=== PATIENT | male | born 1935 | race Caucasian/White ===

== ENCOUNTER 2020-12-09 09:15 | Day surgery (SDC) | payer MEDICARE, OTHER ==
[2020-12-07 14:45] VITALS: BMI 27.0
--- NOTE | 2020-12-09 06:34 | P.GSHP ---
History of Present Illness H&P Date: 12/04/20 Chief Complaint: Urinary retention The patient is an 84-year-old white male with a several year history of urinary retention, managed with an indwelling Foy catheter. The catheter becomes occluded frequently, requiring frequent catheter changes. Cystoscopy shows multiple large bladder calculi. He now comes for cystolithotripsy. - Constitutional Constitutional: Denies chills, Denies fever - Gastrointestinal Gastrointestinal: Denies nausea, Denies vomiting - Genitourinary (Male) Genitourinary: Reports dysuria Past Medical History - Past Family History Mother Family Medical History: No Reported History Medications and Allergies Home Medications Medication Instructions Recorded Confirmed Type Ciprofloxacin HCl [Cipro] 250 mg PO Q12HR 12/07/20 12/07/20 History Allergies Allergy/AdvReac Type Severity Reaction Status Date / Time No Known Allergies Allergy Verified 12/07/20 14:39 Surgical - Exam - General well developed, well nourished, no distress - Neck no masses, trachea midline - Respiratory normal respiratory effort, clear to auscultation - Cardiovascular Rhythm: regular Abnormal Heart Sounds: no systolic murmur, no diastolic murmur, no rub, no S3 Gallop, no S4 Gallop, no click, no other - Abdomen Abdomen: soft, non tender, no guarding, no rigid, no rebound - Genitourinary normal penis with no external lesions, testicles non-tender - Psychiatric oriented to time, oriented to person, oriented to place, speech is normal, memory intact Assessment and Plan (1) Calculus in bladder Status: Acute Code(s): N21.0 - CALCULUS IN BLADDER SNOMED Code(s): 35296008 Plan: Cystoscopy with cystolithotripsy. The procedure then reviewed in detail with the patient. He is aware of potential risks, which include anesthesia, bleeding, infection, and bladder perforation.
[2020-12-09] MEDS ORDERED: ONDANSETRON 4 MG/2 ML VIAL ONE (09:26)
[2020-12-09] MEDS ORDERED: LACTATED RINGERS 1,000 ML IV ONE ×2 (09:32→12:40)
[2020-12-09 09:45] VITALS: TEMP 97.6
[2020-12-09] MEDS ORDERED: DEXAMETHASONE SOD PHOSPHATE 4 MG/ML 1 ML VIAL IVP ONE (09:47)
[2020-12-09] MEDS ORDERED: ONDANSETRON 4 MG/2 ML VIAL IVP ONE (09:47)
[2020-12-09] MEDS ORDERED: SUCCINYLCHOLINE CHLORIDE 100 MG/5 ML SYR IV ONE (11:49)
[2020-12-09] MEDS ORDERED: fentaNYL (PF) 50 MCG/ML 2 ML AMP ONE (11:49)
[2020-12-09] MEDS ORDERED: KETOROLAC 15 MG/ML 1 ML VIAL ONE (11:49)
[2020-12-09] MEDS ORDERED: FUROSEMIDE 10 MG/ML 2 ML VIAL ONE (11:49)
[2020-12-09] MEDS ORDERED: GLYCOPYRROLATE 0.2 MG/ML 2 ML VIAL ONE (11:49)
[2020-12-09] MEDS ORDERED: PROPOFOL 10 MG/ML 20 ML VIAL IV ONE (11:49)
[2020-12-09] MEDS ORDERED: NEOSTIGMINE 1 MG/ML 10 ML VIAL ONE (11:49)
[2020-12-09] MEDS ORDERED: HYDROmorphone (PF) 1 MG/ML ONE (11:49)
[2020-12-09] MEDS ORDERED: LIDOCAINE 1% INJ 10MG/ML (20 ML MDV) ONE (11:49)
[2020-12-09] MEDS ORDERED: ROCURONIUM 10 MG/ML (5 ML VIAL) IV ONE (11:49)
[2020-12-09 14:05] VITALS: RESP 16
[2020-12-09 15:20] VITALS: BP 168/89; PULSE 62
--- NOTE | 2020-12-09 21:25 | P.OP ---
Date of Procedure: 12/09/20 Preoperative Diagnosis: Bladder calculi Postoperative Diagnosis: Same Procedure(s) Performed: Cystoscopy with cystolithotripsy, fulguration of bleeders Anesthesia: DARIUS Surgeon: Carlos Alberto See Estimated Blood Loss (ml): 30 IV fluids (ml): 1,900 Pathology: other (Calculus fragments, sent for chemical analysis) Condition: stable Disposition: PACU Indications for Procedure: The patient is an 84-year-old white male with a several year history of urinary retention, managed with an indwelling Foy catheter. The catheter becomes occluded frequently, requiring frequent catheter changes. Cystoscopy shows multiple large bladder calculi. He now comes for cystolithotripsy. Operative Findings: Multiple large bladder calculi, measuring up to 2.5 cm in size. Description of Procedure: The patient was taken to the operating room and placed in the dorsal lithotomy position, with legs supported in Naga stirrups. The external genitalia was prepped and draped sterilely. The 30 lens was used to introduce the 21-[place] Gonzales cystoscopic sheath through the urethra and into the bladder under direct vision. The urethra appeared normal. The prostate was visually occluded due to bilobar prostatic enlargement. The bladder was examined in its entirety. The ureteral orifices appeared normal. Over a dozen calculi were seen, measuring up to 2.5 cm in size. No tumors were seen. No diverticuli were seen. Using the 1000 micron Holmium laser probe, lithotripsy was performed. Lithotripsy was continued until all calculus fragments could be removed using the [employer] evacuator. Once this was completed, the bladder was inspected. Oozing was noted from the posterior vesicle neck. This was controlled with electrocautery using the Bugbee electrode. There was no evidence of bladder perforation. A 20-[place] Foy catheter was placed. The return was pink-tinged. The patient tolerated the procedure well was taken to the recovery room in stable condition.
== END 2020-12-09 16:00 | disposition home or self-care (01) ==
LOC: OR 09:15
PROVIDERS: ATTEND Urology
DX: N21.0 Calculus in bladder (principal); N40.0 Benign prostatic hyperplasia without lower urinary tract symptoms; Z97.2 Presence of dental prosthetic device (complete) (partial)
CPT/HCPCS: 52318; 82365; J1100; J1940; J2710; J2405; J0696; J2001; J3010; J1170; J1885; J0330; J2704

== ENCOUNTER 2022-11-21 11:56 | Inpatient (IN) | payer MEDICARE, OTHER ==
[2022-11-21] MEDS ORDERED: MIDAZOLAM 2 MG/2 ML VIAL IV ONE (13:58)
[2022-11-21] MEDS ORDERED: VERAPAMIL SYRINGE (5 MG/10 ML) INTRAARTER ONE (14:01)
[2022-11-21] MEDS ORDERED: IV FLUID CONTINUATION 750 ML IV ONE (14:02)
[2022-11-21] MEDS: HEPARIN SODIUM 1,000 UN/ML (10ML VL) IV ONE ×3 (14:05→15:10)
[2022-11-21] MEDS: niCARdipine Syringe (1,000 mcg/10 mL) INTRACORON ONE ×2 (14:43→14:49)
[2022-11-21] MEDS ORDERED: PHENYLEPHRINE-0.9% NACL SYG 1,000 MCG/10 ML SYRINGE IV ONE (14:49)
[2022-11-21] MEDS ORDERED: IOPAMIDOL-370 100ML BTL INJ ONE ×2 (14:54→14:55)
[2022-11-21] MEDS ORDERED: NITROGLYCERIN SL TABS 0.4 MG TAB SUBLINGUAL PRN (15:04)
[2022-11-21] MEDS ORDERED: ZOLPIDEM 5 MG TAB PO PRN (15:04)
[2022-11-21] MEDS ORDERED: RX INFO: IV CONTRAST WAS GIVEN 1 EACH MISC MISCELLANE PRN (15:04)
[2022-11-21] MEDS ORDERED: MAG HYDROX/AL HYDROX/SIMETH 30 ML CUP PO PRN (15:04)
[2022-11-21] MEDS ORDERED: ATROPINE SULFATE 0.1 MG/ML 10ML SYRINGE IV PRN (15:04)
[2022-11-21] MEDS ORDERED: TICAGRELOR 90 MG TAB PO ONE (15:08)
[2022-11-21] MEDS ORDERED: TIROFIBAN BOLUS 12.5MG/250 ML BAG IV ONE (15:09)
[2022-11-21] MEDS ORDERED: TIROFIBAN 12.5MG-250ML NS 250 ML IV ONE (15:10)
[2022-11-21] MEDS ORDERED: TIROFIBAN 12.5MG-250ML NS 250 ML IV SCH (15:15)
[2022-11-21] MEDS ORDERED: SODIUM CHLORIDE 0.9% 1,000 ML in EMPTY BAG 1 BAG IV SCH (15:15)
[2022-11-21 15:45] LABS: Glucose,Whole Blood 245 mg/dL (70-110)
[2022-11-21] MEDS: HYDROcodone/APAP 7.5-325MG 1 EACH TAB PO PRN (20:29)
[2022-11-21] MEDS: ATORVASTATIN 80 MG TAB PO SCH (20:31)
[2022-11-21] MEDS: TICAGRELOR 90 MG TAB PO SCH (20:31)
--- NOTE | 2022-11-21 21:24 | P.PCN ---
Date of Procedure: 11/21/22 Operative Findings: PERCUTANEOUS CORONARY INTERVENTION Performing physician Umre Kinsey M.D. Procedure Performed: 1. Successful stenting of the proximal LAD using 3.0 x 38 mm Xience drug-eluting stent with an excellent angiographic results. 2. Successful stending of the mid LAD using 2.75 x 28 mm Xience drug-eluting stent with an excellent angiographic result. 3. Adjunctive use off intravascular ultrasound (IVUS) Indication: Acute coronary syndrome Approach: Right radial artery Complications: None Level of Sedation: Moderate with a sedation length of 62 minutes Procedure Discussion: After diagnostic heart catheterization was performed at [facility] which revealed occluded LAD in the ostium the patient was brought to the cardiac catheterization laboratory here at [facility] to undergo an intervention on the left anterior descending artery. Anticoagulation was initiated using heparin with continuous ACT monitoring throughout the procedure. Subsequently I did engage the left main coronary artery using JL 3.5 guiding catheter. I did wire the LAD and I crossed the total occlusion of the ostial/proximal left anterior descending artery which was extremely calcified using a whisper J-wire. The wire was advanced all the way to the distal left anterior descending artery. I did initially balloon angioplasty using 2.0 x 15 mm balloon and I did multiple PTCA ballooning of the LAD in the proximal portion. After that intravascular ultrasound was performed and showed a diameter of the LAD and around 3 mm with concentric calcifications. Attempting advancing 3.0 x 38 mm stent over the wire to the proximal and ostial LAD was unsuccessful in spite of using guide liner. At that point I decided to do balloon angioplasty again of the proximal to mid and mid LAD. That was performed using 3 mm balloon. After that I was able to advance 3.0 x 38 mm stent where the stent was positioned under fluoroscopy guidance and deployed under its nominal pressure. The following angiogram showed an area distal to the stent was a tubular lesion appeared to be concerning which I decided to cover with the stent again. At that area I deployed 2.75 x 28 mm stent after balloon angioplasty initially was performed. The second stent was deployed with about 2 mm overlap between the second and first the stent. The area of overlap was dilated using the stent balloon. The following angiogram showed better angiographic results was NAVID 2 flow in the left anterior descending artery. I decided to leave that alone and start the patient on IIb IIIa inhibitors using Aggrastat. The procedure was completed was no complication Postprocedure Management: 1. Continue IIb IIIa infusion for the next 12-18 hours 2. Dual antiplatelet therapy using aspirin and Brilinta 3. Aggressive cholesterol control
[2022-11-21] MEDS: ACETAMINOPHEN TAB 325 MG TAB PO PRN (23:32)
[2022-11-22 05:16] LABS: Basophils % (A) 0 %; Eosinophils # (A) 0.1 k/uL (0-0.7); Eosinophils % (A) 2 %; HCT 39.9 % (39.0-53.0); HGB 12.8 gm/dL (13.0-17.5); Hypochromasia Slight; Lymphocytes % (A) 14 %; MCH 30.9 pg (25.0-35.0); MCV 96.4 fL (80.0-100.0); Monocytes # (A) 0.5 k/uL (0-1.0); Monocytes % (A) 6 %; Neutrophils # (A) 5.9 k/uL (1.3-7.7); Neutrophils % (A) 77 %; Platelet Count 147 k/uL (150-450); RBC 4.14 m/uL (4.30-5.90); RDW 13.6 % (11.5-15.5); WBC 7.6 k/uL (3.8-10.6)
[2022-11-22 05:29] LABS: Calcium 8.2 mg/dL (8.4-10.2); Total Bilirubin 1.5 mg/dL (0.2-1.3); Total Protein 5.7 g/dL (6.3-8.2)
[2022-11-22] MEDS: HYDROcodone/APAP 7.5-325MG 1 EACH TAB PO PRN ×2 (07:45→21:36)
[2022-11-22] MEDS ORDERED: FUROSEMIDE 40 MG TAB PO STA (08:35)
[2022-11-22] MEDS: METOPROLOL SUCCINATE (ER) 25 MG TAB.ER.24H PO SCH (08:58)
[2022-11-22] MEDS: ASPIRIN 81 MG PO SCH (08:58)
[2022-11-22] MEDS: TICAGRELOR 90 MG TAB PO SCH ×2 (08:59→21:36)
--- NOTE | 2022-11-22 09:20 | P.PN ---
Subjective Progress Note Date: 11/22/22 The patient is an 86-year-old male who was transferred from [facility] for stenting of the LAD. The patient had undergone diagnostic heart cath with Dr. Kinsey, which revealed occluded LAD in the ostium. The patient underwent successful arthrectomy, however he had a large thrombus burden therefore has been Aggrastat for 12-18 Hours Post Procedure. End-Diastolic Pressures Were Noted to Be Elevated throughout Procedure. The patient was interviewed and examined resting comfortably in the ICU bed. He denies any chest pain or chest pressure overnight. His main complaint is lack of appetite and generalized achiness. GENERAL: Well-appearing, well-nourished and in no acute distress. NECK: Supple without JVD or thyromegaly. LUNGS: Breath sounds clear to auscultation bilaterally. Respiration equal. Mildly tachypneic. No wheezes, rales or rhonchi. HEART: Regular rate and rhythm without murmurs, rubs or gallops. S1 and S2 heard. EXTREMITIES: Normal range of motion, no edema. No clubbing or cyanosis. Peripheral pulses intact and strong. Right radial site under TR band. VITALS: Blood pressure 114/82, SpO2 95% on room air, respiratory rate 22, pulse 77 TELEMETRY: Sinus rhythm with left bundle branch block IMPRESSION: NSTEMI Coronary artery disease with occluded LAD, status post arthrectomy and stenting Ischemic cardiomyopathy History of hypothyroidism PLAN: Continue Aggrestat through 1800 Discontinue IV fluids with elevated LVDP Repeat limited echocardiogram tomorrow Start furosemide 40mg daily Further recommendations based on clinical course I am dictating on behalf of Dr Beny Hughes's history/physical and assessment/plan. Objective - Vital Signs Vital signs: Vital Signs Temp 97.3 F L 11/22/22 04:00 Pulse 69 11/22/22 07:00 Resp 47 H 11/22/22 07:00 BP 106/77 11/22/22 05:00 Pulse Ox 97 11/22/22 07:00 FiO2 Intake & Output 11/21/22 11/22/22 11/22/22 18:59 06:59 18:59 Intake Total 242.594 609.198 100 Output Total 175 435 245 Balance 67.594 174.198 -145 Weight 102.2 kg 97.3 kg Intake: IV 65 550 100 Sodium Chloride 0.9% 1, 550 100 000 ml In Empty Bag 1 bag @ 50 mls/hr IV .Q20H [facility] Rx#:[id number] Intake, IV Titration 177.594 59.198 Amount Sodium Chloride 0.9% 1, 150 50 000 ml In Empty Bag 1 bag @ 50 mls/hr IV .Q20H [facility] Rx#:[id number] Tirofiban 12.5MG-250Ml Ns 27.594 9.198 250 ml @ 0.075 MCG/KG/ MIN 9.198 mls/hr IV .Q24H [facility] Rx#:[id number] Output: Urine 175 435 245 Other: Voiding Method Indwelling Catheter Indwelling Catheter - Labs CBC & Chem 7: 11/22/22 04:54 11/22/22 04:54 Labs: Abnormal Lab Results - Last 24 Hours (Table) 11/21/22 11/22/22 11/22/22 Range/Units 15:43 04:54 04:54 RBC 4.14 L (4.30-5.90) m/uL Hgb 12.8 L (13.0-17.5) gm/dL Plt Count 147 L (150-450) k/uL BUN 31 H (9-20) mg/dL Glucose 108 H (74-99) mg/dL POC Glucose (mg/dL) 245 H (70-110) mg/dL Calcium 8.2 L (8.4-10.2) mg/dL Total Bilirubin 1.5 H (0.2-1.3) mg/dL AST 90 H (17-59) U/L Total Protein 5.7 L (6.3-8.2) g/dL Albumin 3.0 L (3.5-5.0) g/dL
--- NOTE | 2022-11-22 09:43 | P.HPIM ---
History of Present Illness H&P Date: 11/21/22 Fred Chávez, is a 86-year-old male patient was transferred from [facility] after diagnostic cardiac cath revealed occluded LAD in the ostium. Patient has past medical history of bladder stones. Patient underwent percutaneous coronary intervention with Dr. Murcia received 2 stents to the LAD. Patient was started on Brilinta for anticoagulation and transferred to the intensive care unit for close monitoring. Vital signs temp 98.6, heart rate 89, blood pressure 124/80 and pulse ox 97% on 2l. At this time patient denies any chest pain. Does report some shortness of breath. Patient denies nausea vomiting or diarrhea. Patient denies any urinary burning or frequency Review of Systems Please refer to HPI otherwise unremarkable Past Medical History Additional Past Medical History / Comment(s): BLADDER STONES History of Any Multi-Drug Resistant Organisms: None Reported Past Surgical History: No Surgical Hx Reported Additional Past Surgical History / Comment(s): DENIES ANY PRIOR SURGERIES OR PROCEDURES Past Anesthesia/Blood Transfusion Reactions: No Reported Reaction Smoking Status: Never smoker - Past Family History Mother Family Medical History: No Reported History Medications and Allergies Home Medications Medication Instructions Recorded Confirmed Type HYDROcodone/APAP 10-325MG [[place] 1 tab PO TID PRN 11/21/22 11/21/22 History 10-325] Lactulose 10 gm PO DAILY 11/21/22 11/21/22 History Levothyroxine Sodium [Synthroid] 25 mcg PO DAILY 11/21/22 11/21/22 History Nystatin 100,000Unit/gm Cream 1 applic TOPICAL BID PRN 11/21/22 11/21/22 History [Mycostatin Cream] Allergies Allergy/AdvReac Type Severity Reaction Status Date / Time No Known Allergies Allergy Verified 12/07/20 14:39 Physical Exam Vitals: Vital Signs Temp Pulse Resp BP Pulse Ox 11/21/22 13:00 97.0 F L 75 16 110/71 98 Intake and Output 11/21/22 11/21/22 11/21/22 06:59 14:59 22:59 Intake Total 50 15 Balance 50 15 Intake: IV 50 15 Other: Weight 102.2 kg Head normocephalic Neck supple Lungs clear to auscultation bilaterally no wheezing or crackles Heart regular rate and rhythm S1-S2, no rub or gallop Abdomen is soft nontender nondistended positive bowel sounds no hepatosplenomegaly Extremities no edema Neuro alert and orientated to [address] to right radial Results CBC & Chem 7: 11/22/22 04:54 11/22/22 04:54 Labs: Abnormal Lab Results - Last 24 Hours (Table) 11/21/22 Range/Units 15:43 POC Glucose (mg/dL) 245 H (70-110) mg/dL Assessment and Plan Assessment: 1. Coronary artery disease with placement of 2 stents to LAD on 11/21/2022 2. Ischemic cardiomyopathy 3. History of hypothyroidism 4. Chronic constipation 5. History of bladder stones Patient currently overflow in the intensive care unit Home medications resumed Repeat labs ordered Time with Patient: Greater than 30 (Greater than 60% of the total time spent in counseling and coordination of care)
--- NOTE | 2022-11-22 09:46 | P.PN ---
Subjective Progress Note Date: 11/22/22 Fred Chávez, is a 86-year-old male patient was transferred from [facility] after diagnostic cardiac cath revealed occluded LAD in the ostium. Patient has past medical history of bladder stones. Patient underwent percutaneous coronary intervention with Dr. Murcia received 2 stents to the LAD. Patient was started on Brilinta for anticoagulation and transferred to the intensive care unit for close monitoring. Vital signs temp 98.6, heart rate 89, blood pressure 124/80 and pulse ox 97% on 2l. At this time patient denies any chest pain. Does report some shortness of breath. Patient denies nausea vomiting or diarrhea. Patient denies any urinary burning or frequency On 11/22/2022 patient is alert and oriented 3. Patient denies any chest pain but still complaining of some shortness of breath. Current vital signs temp 97.9, heart rate 81, respiratory rate 17, blood pressure 114/82 with pulse ox of 95%. 2-D echo has been ordered per cardiology. Patient denies chest pain. Patient denies nausea vomiting or diarrhea. Patient denies any urinary burning or frequency Objective - Vital Signs Vital signs: Vital Signs Temp 97.9 F 11/22/22 08:00 Pulse 77 11/22/22 09:00 Resp 12 11/22/22 09:00 BP 114/82 11/22/22 09:00 Pulse Ox 95 11/22/22 09:00 FiO2 Intake & Output 11/21/22 11/22/22 11/22/22 18:59 06:59 18:59 Intake Total 242.594 609.198 100 Output Total 175 435 245 Balance 67.594 174.198 -145 Weight 102.2 kg 97.3 kg Intake: IV 65 550 100 Sodium Chloride 0.9% 1, 550 100 000 ml In Empty Bag 1 bag @ 50 mls/hr IV .Q20H [facility] Rx#:[id number] Intake, IV Titration 177.594 59.198 Amount Sodium Chloride 0.9% 1, 150 50 000 ml In Empty Bag 1 bag @ 50 mls/hr IV .Q20H [facility] Rx#:[id number] Tirofiban 12.5MG-250Ml Ns 27.594 9.198 250 ml @ 0.075 MCG/KG/ MIN 9.198 mls/hr IV .Q24H [facility] Rx#:[id number] Output: Urine 175 435 245 Other: Voiding Method Indwelling Catheter Indwelling Catheter - Exam Head normocephalic Neck supple Lungs clear to auscultation bilaterally no wheezing or crackles Heart regular rate and rhythm S1-S2, no rub or gallop Abdomen is soft nontender nondistended positive bowel sounds no hepatosplenomegaly Extremities no edema Neuro alert and orientated to [address] to right radial - Labs CBC & Chem 7: 11/22/22 04:54 11/22/22 04:54 Labs: Abnormal Lab Results - Last 24 Hours (Table) 11/21/22 11/22/22 11/22/22 Range/Units 15:43 04:54 04:54 RBC 4.14 L (4.30-5.90) m/uL Hgb 12.8 L (13.0-17.5) gm/dL Plt Count 147 L (150-450) k/uL BUN 31 H (9-20) mg/dL Glucose 108 H (74-99) mg/dL POC Glucose (mg/dL) 245 H (70-110) mg/dL Calcium 8.2 L (8.4-10.2) mg/dL Total Bilirubin 1.5 H (0.2-1.3) mg/dL AST 90 H (17-59) U/L Total Protein 5.7 L (6.3-8.2) g/dL Albumin 3.0 L (3.5-5.0) g/dL Assessment and Plan Assessment: 1. Coronary artery disease with placement of 2 stents to LAD on 11/21/2022 2. Ischemic cardiomyopathy 3. History of hypothyroidism 4. Chronic constipation 5. History of bladder stones Patient currently overflow in the intensive care unit Home medications resumed Repeat labs ordered
[2022-11-22 10:10] VITALS: BMI 26.1
[2022-11-22] MEDS ORDERED: ONDANSETRON 4 MG/2 ML VIAL IVP PRN (14:46)
[2022-11-22] MEDS: ACETAMINOPHEN TAB 325 MG TAB PO PRN (14:52)
[2022-11-22] MEDS ORDERED: FUROSEMIDE 10 MG/ML 4 ML VIAL IV STA (15:00)
[2022-11-22] MEDS: NITROGLYCERIN OINT 1 INCH/GM PACKET TOPICAL SCH ×2 (15:16→18:26)
--- NOTE | 2022-11-22 15:17 | P.PN ---
Progress Note - Text Progress Note Date: 11/22/22 Patient is a transfer from [facility] Symptomatic urinary tract infection, with generalized weakness leukocytosis, he was started on IV ceftriaxone at [facility] Will resume ceftriaxone 1 g IV every 24 We'll obtain culture results from vacation [facility]
[2022-11-22] MEDS: FUROSEMIDE 40 MG TAB PO SCH (15:43)
[2022-11-22 15:57] LABS: Appearance,Urine Clear (Clear); Bacteria,Urine Rare /hpf; Bilirubin,Urine Negative (Negative); Blood,Urine Negative (Negative); Color,Urine Light Yellow; Glucose,Urine (UA) Negative (Negative); Ketones,Urine Negative (Negative); Leukocyte Esterase,Urine Moderate (Negative); Mucus,Urine Rare /hpf; Nitrite,Urine Negative (Negative); Protein,Urine Negative (Negative); RBC,Urine <1 /hpf (0-5); Specific Gravity,Urine 1.012 (1.001-1.035); Squamous Epithelial Cell,Urine <1 /hpf (0-4); Urobilinogen,Urine <2.0 mg/dL (<2.0); WBC,Urine 4 /hpf (0-5)
[2022-11-22] MEDS: ATORVASTATIN 80 MG TAB PO SCH (21:36)
[2022-11-23] MEDS: NITROGLYCERIN OINT 1 INCH/GM PACKET TOPICAL SCH ×4 (02:16→15:43)
[2022-11-23 04:05] LABS: Basophils % (A) 0 %; Eosinophils # (A) 0.1 k/uL (0-0.7); Eosinophils % (A) 2 %; HGB 12.7 gm/dL (13.0-17.5); Lymphocytes % (A) 15 %; MCH 29.3 pg (25.0-35.0); MCHC 31.8 g/dL (31.0-37.0); Mean Platelet Volume 8.1; Monocytes # (A) 0.4 k/uL (0-1.0); Monocytes % (A) 6 %; Neutrophils # (A) 5.5 k/uL (1.3-7.7); Neutrophils % (A) 76 %; Platelet Count 147 k/uL (150-450); RBC 4.34 m/uL (4.30-5.90); RDW 13.6 % (11.5-15.5); WBC 7.2 k/uL (3.8-10.6)
[2022-11-23 04:25] LABS: Albumin 2.9 g/dL (3.5-5.0); Calcium 7.8 mg/dL (8.4-10.2); Potassium 3.5 mmol/L (3.5-5.1); Total Protein 5.6 g/dL (6.3-8.2)
[2022-11-23] MEDS: LEVOTHYROXINE 25 MCG TAB PO SCH (06:51)
[2022-11-23] MEDS: HYDROcodone/APAP 7.5-325MG 1 EACH TAB PO PRN ×2 (07:00→20:13)
--- NOTE | 2022-11-23 08:59 | P.PN ---
Subjective Progress Note Date: 11/23/22 The patient is an 86-year-old male who was transferred from [facility] for stenting of the LAD. The patient had undergone diagnostic heart cath with Dr. Kinsey, which revealed occluded LAD in the ostium. The patient underwent successful arthrectomy, however he had a large thrombus burden therefore has been Aggrastat was given post operatively. End-diastolic pressures were noted to be elevated during procedure. The patient was transferred to [facility] on November 22, however later in the day he de veloped shortness of breath. Additional dose of IV Lasix was given and the patient was transferred back to the ICU for monitoring. According to nursing documentation he is down 3 kg in the last 24 hours. The patient was interviewed and examined resting comfortably in the ICU bed. He denies any chest pain or chest pressure overnight. His main complaint is lack of appetite and generalized achiness. He denies any shortness of breath currently. GENERAL: Well-appearing, well-nourished and in no acute distress. NECK: Supple without JVD or thyromegaly. LUNGS: Breath sounds clear to auscultation bilaterally. Respiration equal. No wheezes, rales or rhonchi. HEART: Regular rate and rhythm without murmurs, rubs or gallops. S1 and S2 heard. EXTREMITIES: Normal range of motion, no edema. No clubbing or cyanosis. Peripheral pulses intact and strong. Right radial site mildly bruised. No gallo any. VITALS: Blood pressure 90/61, heart rate 75, respiratory rate 20, SpO2 94% on room air, temperature 90.8F TELEMETRY: Sinus rhythm with left bundle branch block IMPRESSION: NSTEMI Coronary artery disease with occluded LAD, status post arthrectomy and stenting Ischemic cardiomyopathy History of hypothyroidism PLAN: Continue oral Lasix Awaiting echocardiogram results Resume SAVANNAH/ARB once blood pressure will tolerate Patient may be transferred back to [address] [place] [address] I am dictating on behalf of Dr Beny Hughes's history/physical and assessment/plan. Objective - Vital Signs Vital signs: Vital Signs Temp 98.0 F 11/23/22 08:00 Pulse 75 11/23/22 08:00 Resp 20 11/23/22 08:00 BP 90/61 11/23/22 08:00 Pulse Ox 94 L 11/23/22 08:00 FiO2 Intake & Output 11/22/22 11/23/22 11/23/22 18:59 06:59 18:59 Intake Total 150 Output Total 635 800 250 Balance -485 -800 -250 Weight 97.3 kg 94.7 kg Intake: IV 100 Sodium Chloride 0.9% 1, 100 000 ml In Empty Bag 1 bag @ 50 mls/hr IV .Q20H [facility] Rx#:[id number] Oral 50 Output: Urine 635 800 250 Other: Voiding Method Indwelling Catheter Indwelling Catheter - Labs CBC & Chem 7: 11/23/22 03:45 11/23/22 03:45 Labs: Abnormal Lab Results - Last 24 Hours (Table) 11/22/22 11/23/22 11/23/22 Range/Units 14:57 03:45 03:45 Hgb 12.7 L (13.0-17.5) gm/dL Plt Count 147 L (150-450) k/uL Sodium 136 L (137-145) mmol/L BUN 29 H (9-20) mg/dL Creatinine 1.30 H (0.66-1.25) mg/dL Glucose 107 H (74-99) mg/dL Calcium 7.8 L (8.4-10.2) mg/dL AST 78 H (17-59) U/L Total Protein 5.6 L (6.3-8.2) g/dL Albumin 2.9 L (3.5-5.0) g/dL Ur Leukocyte Esterase Moderate H (Negative) Urine Bacteria Rare H (None) /hpf Urine Mucus Rare H (None) /hpf
[2022-11-23] MEDS: TICAGRELOR 90 MG TAB PO SCH ×2 (10:47→20:11)
[2022-11-23] MEDS: ASPIRIN 81 MG PO SCH (10:47)
[2022-11-23] MEDS: FUROSEMIDE 40 MG TAB PO SCH (10:47)
[2022-11-23] MEDS: LACTULOSE 20 GM/30 ML CUP PO SCH (10:47)
--- NOTE | 2022-11-23 12:45 | CA ---
Transthoracic Echo Report Name: Fred Chávez Age: 86 Gender: M : 1935 Exam Date: 11/23/2022 07:58 Exam Location: [place] [facility] Ht (in): 76 Wt (lb): 214 Ordering Physician: Zahraa Smith Attending/Referring Phys: [id number], Luis Intake Man Magdalene Caldera, RD Procedure CPT: Indications: cardiomyopathy Cardiac Hx: Technical Quality: Fair Contrast 1: Total Dose (mL): Contrast 2: Total Dose (mL): MEASUREMENTS (Male / Female) Normal Values 2D ECHO LV Diastolic Diameter PLAX 4.6 cm 4.2 - 5.9 / 3.9 - 5.3 cm LV Systolic Diameter PLAX 3.5 cm IVS Diastolic Thickness 1.4 cm 0.6 - 1.0 / 0.6 - 0.9 cm LVPW Diastolic Thickness 1.2 cm 0.6 - 1.0 / 0.6 - 0.9 cm LV Relative Wall Thickness 0.6 RV Internal Dim ED PLAX 2.6 cm LVOT Diameter 2.4 cm LA Systolic Diameter LX 3.3 cm 3.0 - 4.0 / 2.7 - 3.8 cm LV Diastolic Volume MOD 4C 132.2 cm??? LV Systolic Volume MOD 4C 102.4 cm??? LV Ejection Fraction MOD 4C 22.5 % LV Diastolic Length 4C 8.2 cm LV Systolic Length 4C 7.8 cm LV Diastolic Volume MOD 2C 77.1 cm??? LV Systolic Volume MOD 2C 49.4 cm??? LV Ejection Fraction MOD 2C 35.9 % LV Diastolic Length 2C 7.9 cm LV Systolic Length 2C 7.7 cm M-MODE Aortic Root Diameter MM 4.1 cm MV E Point Septal Separation 2.1 cm AV Cusp Separation MM 1.8 cm DOPPLER AV Peak Velocity 64.5 cm/s AV Peak Gradient 1.7 mmHg MV Area PHT 2.8 cm??? Mitral E Point Velocity 56.8 cm/s Mitral A Point Velocity 79.2 cm/s Mitral E to A Ratio 0.7 MV Deceleration Time 274.7 ms MV E' Velocity 5.3 cm/s Mitral E to MV E' Ratio 10.7 TR Peak Velocity 254.4 cm/s TR Peak Gradient 25.9 mmHg Right Ventricular Systolic Press 30.6 mmHg FINDINGS Left Ventricle Left ventricular ejection fraction is estimated at 15-20 %. Left ventricular cavity size normal. Mildly increased septal wall thickness. Apical septum akinesis, apical anterior akinesis, apicallateral akinesis, apicalinferior akinesis Right Ventricle Normal right ventricular size. Right ventricular systolic pressure within normal limits. Systolic function mildly impare Right Atrium Normal right atrial size. Left Atrium Left atrium not well visualized. Mitral Valve Mitral valve thickened. Mild mitral annular calcification. Mild mitral regurgitation. Aortic Valve Trileaflet aortic valve. Aortic valve sclerosis. Trace aortic regurgitation. Tricuspid Valve Structurally normal tricuspid valve. Mild tricuspid regurgitation. Pulmonic Valve Structurally normal pulmonic valve. Mild pulmonic regurgitation. Pericardium Normal pericardium. No pericardial effusion. Aorta Moderate aortic dilatation at the level of the sinuses of valsalva 41 mm CONCLUSIONS Left ventricular ejection fraction 15-20% with predominantly apical hypokinesis. 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 Armando Spencer DO (Electronically Signed) Final Date: 23 Nov 2022 12:44
[2022-11-23] MEDS: ACETAMINOPHEN TAB 325 MG TAB PO PRN (14:36)
[2022-11-23] MEDS: METOPROLOL SUCCINATE (ER) 25 MG TAB.ER.24H PO SCH (15:00)
--- NOTE | 2022-11-23 16:36 | P.PN ---
Subjective Progress Note Date: 11/23/22 Fred Chávez, is a 86-year-old male patient was transferred from [facility] after diagnostic cardiac cath revealed occluded LAD in the ostium. Patient has past medical history of bladder stones. Patient underwent percutaneous coronary intervention with Dr. Murcia received 2 stents to the LAD. Patient was started on Brilinta for anticoagulation and transferred to the intensive care unit for close monitoring. Vital signs temp 98.6, heart rate 89, blood pressure 124/80 and pulse ox 97% on 2l. At this time patient denies any chest pain. Does report some shortness of breath. Patient denies nausea vomiting or diarrhea. Patient denies any urinary burning or frequency On 11/22/2022 patient is alert and oriented 3. Patient denies any chest pain but still complaining of some shortness of breath. Current vital signs temp 97.9, heart rate 81, respiratory rate 17, blood pressure 114/82 with pulse ox of 95%. 2-D echo has been ordered per cardiology. Patient denies chest pain. Patient denies nausea vomiting or diarrhea. Patient denies any urinary burning or frequency. On 11/23/2022 patient was seen and examined on the telemetry floor he is alert and oriented 3. Patient denies any chest pain but still complaining of some shortness of breath. Current vital signs temp 97.9, heart rate 81, respiratory rate 17, blood pressure 114/82 with pulse ox of 95%. 2-D echo has been ordered per cardiology. Patient denies chest pain. Patient denies nausea vomiting or diarrhea. Patient denies any urinary symptoms, he has a chronic indwelling Foy catheter. Patient had significant weakness and gait disturbance, physical therapy and occupational therapy consult. Objective - Vital Signs Vital signs: Vital Signs Temp 98.0 F 11/23/22 08:00 Pulse 75 11/23/22 08:00 Resp 20 11/23/22 08:00 BP 90/61 11/23/22 08:00 Pulse Ox 94 L 11/23/22 08:00 FiO2 Intake & Output 11/22/22 11/23/22 11/23/22 18:59 06:59 18:59 Intake Total 150 Output Total 635 800 250 Balance -485 -800 -250 Weight 97.3 kg 94.7 kg Intake: IV 100 Sodium Chloride 0.9% 1, 100 000 ml In Empty Bag 1 bag @ 50 mls/hr IV .Q20H [facility] Rx#:[id number] Oral 50 Output: Urine 635 800 250 Other: Voiding Method Indwelling Catheter Indwelling Catheter - Exam Head normocephalic Neck supple Lungs clear to auscultation bilaterally no wheezing or crackles Heart regular rate and rhythm S1-S2, no rub or gallop Abdomen is soft nontender nondistended positive bowel sounds no hepatosplenomegaly Extremities no edema Neuro alert and orientated to [address] to right radial - Labs CBC & Chem 7: 11/23/22 03:45 11/23/22 03:45 Labs: Abnormal Lab Results - Last 24 Hours (Table) 11/22/22 11/23/22 11/23/22 Range/Units 14:57 03:45 03:45 Hgb 12.7 L (13.0-17.5) gm/dL Plt Count 147 L (150-450) k/uL Sodium 136 L (137-145) mmol/L BUN 29 H (9-20) mg/dL Creatinine 1.30 H (0.66-1.25) mg/dL Glucose 107 H (74-99) mg/dL Calcium 7.8 L (8.4-10.2) mg/dL AST 78 H (17-59) U/L Total Protein 5.6 L (6.3-8.2) g/dL Albumin 2.9 L (3.5-5.0) g/dL Ur Leukocyte Esterase Moderate H (Negative) Urine Bacteria Rare H (None) /hpf Urine Mucus Rare H (None) /hpf Assessment and Plan Assessment: 1. Coronary artery disease with placement of 2 stents to LAD on 11/21/2022 2. Ischemic cardiomyopathy 3. History of hypothyroidism 4. Chronic constipation 5. History of bladder stones Patient currently overflow in the intensive care unit Home medications resumed Repeat labs ordered
[2022-11-23] MEDS: ATORVASTATIN 80 MG TAB PO SCH (20:11)
[2022-11-24 00:52] VITALS: RESP 16
[2022-11-24] MEDS: LEVOTHYROXINE 25 MCG TAB PO SCH (05:59)
[2022-11-24 09:19] VITALS: TEMP 98.5
[2022-11-24] MEDS: METOPROLOL SUCCINATE (ER) 25 MG TAB.ER.24H PO SCH (09:19)
[2022-11-24] MEDS: TICAGRELOR 90 MG TAB PO SCH (09:20)
[2022-11-24] MEDS: FUROSEMIDE 40 MG TAB PO SCH (09:20)
[2022-11-24] MEDS: ASPIRIN 81 MG PO SCH (09:20)
[2022-11-24] MEDS: LACTULOSE 20 GM/30 ML CUP PO SCH (09:24)
--- NOTE | 2022-11-24 13:33 | P.DS ---
Providers Date of admission: 11/21/22 12:50 Expected date of discharge: 11/24/22 Attending physician: Mackenzie Maxwell Consults: 11/21/22 15:04 Consult Physician Routine Consulting Provider: [facility] Consult Reason/Comments: Post Interventional Patient Do you want consulting provider notified?: Already Contacted Primary care physician: Mackenzie Maxwell [place] [facility] Course: Final diagnosis Coronary artery disease status post cardiac catheterization with stenting to the LAD 2 on 11/21/2022 Ischemic cardiomyopathy with an EF of 15-20% History of hypothyroidism Chronic constipation history Gait dysfunction with generalized weakness Full code Discharge disposition Patient is being discharged in a stable condition with guarded prognosis to [facility] . Patient will follow-up with Dr. Maxwell in the outpatient setting upon discharge. Patient is to follow-up with cardiology in 1 week and continue on current cardiac medications as scheduled. Total time taken is greater than 35 minutes. Hospital course This is a 86-year-old male who was recently admitted with chest pain and weakness found to have NSTEMI and underwent cardiac catheterization and found to have ischemic cardiomyopathy with an occluded LAD status post arthrectomy and stenting. Patient to continue on cardiac medications as mentioned below and close outpatient follow-up with cardiology. Patient also with weakness and evaluated by physical therapy recommending subacute rehab this patient is almost a 2 person maximum assist. Patient instructed to follow-up with primary care provider on discharge as well. Currently no reports of chest pain, shortness of breath, or palpitations. Patient is afebrile. No reports of nausea or vomiting and patient is tolerating diet. Patient will be discharged to [facility]. Guarded prognosis. Physical exam: Gen: This is a 86-year-old male who is awake, alert and oriented, thin built, elderly appearing HEENT: Head is atraumatic, normocephalic. Pupils equal, round. Sclerae is anicteric. NECK: Supple. No JVD. No lymphadenopathy. No thyromegaly. LUNGS: Clear to auscultation. No wheezes or rhonchi. No intercostal retractions. HEART: S1, S2 are muffled ABDOMEN: Soft. Bowel sounds are present. No masses. No tenderness. EXTREMITIES: No pedal edema. No calf tenderness. NEUROLOGICAL: Patient is awake, alert and oriented x2-3. Cranial nerves 2 through 12 are grossly intact. Diffusely weak Please refer to medication reconciliation sheet for a list of medications. The impression and plan of care has been dictated by Sugey York, Nurse Practitioner as directed. Dr. Germaine MD I have performed a history and examination and MDM of this patient, discussed the same with the dictator, and agree with the dictator's assessment and plan as written ,documented as a scribe. Based on total visit time, I have performed more than 50% of the visit. Patient Condition at Discharge: Fair Plan - Discharge Summary Discharge Rx Participant: Yes New Discharge Prescriptions: New Aspirin 81 mg PO DAILY tab Ticagrelor [Brilinta] 90 mg PO BID tab Furosemide [Lasix] 40 mg PO DAILY tab Atorvastatin [Lipitor] 80 mg PO HS tab HYDROcodone/APAP 7.5-325MG [[place] 7.5-325] 1 each PO Q8H PRN #4 tab PRN Reason: Pain Acetaminophen Tab [Tylenol] 650 mg PO Q6HR PRN tab PRN Reason: Fever And/ Or Pain Mag Hydrox/Al Hydrox/Simeth [Maalox] 30 ml PO Q4HR PRN ml PRN Reason: Heartburn Nitroglycerin Sl Tabs [Nitrostat] 0.4 mg SUBLINGUAL Q5M PRN tab PRN Reason: Chest Pain Metoprolol Succinate (ER) [Toprol XL] 12.5 mg PO DAILY tab Continue Nystatin 100,000Unit/gm Cream [Mycostatin Cream] 1 applic TOPICAL BID PRN PRN Reason: Skin Irritation Lactulose 10 gm PO DAILY Levothyroxine Sodium [Synthroid] 25 mcg PO DAILY Discontinued HYDROcodone/APAP 10-325MG [[place] 10-325] 1 tab PO TID PRN PRN Reason: Pain Discharge Medication List Lactulose 10 gm PO DAILY 11/21/22 [History] Levothyroxine Sodium [Synthroid] 25 mcg PO DAILY 11/21/22 [History] Nystatin 100,000Unit/gm Cream [Mycostatin Cream] 1 applic TOPICAL BID PRN 11/21/22 [History] Acetaminophen Tab [Tylenol] 650 mg PO Q6HR PRN tab 11/24/22 [Rx] Aspirin 81 mg PO DAILY tab 11/24/22 [Rx] Atorvastatin [Lipitor] 80 mg PO HS tab 11/24/22 [Rx] Furosemide [Lasix] 40 mg PO DAILY tab 11/24/22 [Rx] HYDROcodone/APAP 7.5-325MG [[place] 7.5-325] 1 each PO Q8H PRN #4 tab 11/24/22 [Rx] Mag Hydrox/Al Hydrox/Simeth [Maalox] 30 ml PO Q4HR PRN ml 11/24/22 [Rx] Metoprolol Succinate (ER) [Toprol XL] 12.5 mg PO DAILY tab 11/24/22 [Rx] Nitroglycerin Sl Tabs [Nitrostat] 0.4 mg SUBLINGUAL Q5M PRN tab 11/24/22 [Rx] Ticagrelor [Brilinta] 90 mg PO BID tab 11/24/22 [Rx] Follow up Appointment(s)/Referral(s): Mackenzie Maxwell MD [Primary Care Provider] - 1 Week Activity/Diet/Wound Care/Special Instructions: Patient will be going to [facility] Activity as tolerated Recommend follow-up with cardiology in one week Continue taking medications as prescribed Follow-up with primary care provider on discharge Discharge Disposition: TRANSFER TO SNF/ECF
--- NOTE | 2022-11-24 13:38 | P.PN ---
Subjective Progress Note Date: 11/24/22 The patient is an 86-year-old male who was transferred from [facility] for stenting of the LAD. The patient had undergone diagnostic heart cath with Dr. Kinsey, which revealed occluded LAD in the ostium. The patient underwent successful arthrectomy, however he had a large thrombus burden therefore has been Aggrastat was given post operatively. End-diastolic pressures were noted to be elevated during procedure. The patient was transferred to [facility] on November 22, however later in the day he d eveloped shortness of breath. Additional dose of IV Lasix was given and the patient was transferred back to the ICU for monitoring. According to nursing documentation he is down 3 kg in the last 24 hours. The patient was interviewed and examined resting comfortably in the ICU bed. He denies any chest pain or chest pressure overnight. His main complaint is lack of appetite and generalized achiness. He denies any shortness of breath currently. 11/24 Patient is seen today on the cardiac stepdown unit after he was transferred out of the intensive care unit. Patient denies any new concerns. No chest pain or shortness of breath. Plan is for him to go to [facility] today. He is on appropriate medications. Heart rate is in the 70s and 80s, blood pressure 114/74. 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 Mild mitral regurgitation, mild tricuspid regurgitation. GENERAL: Well-appearing, well-nourished and in no acute distress. NECK: Supple without JVD or thyromegaly. LUNGS: Breath sounds clear to auscultation bilaterally. Respiration equal. No wheezes, rales or rhonchi. HEART: Regular rate and rhythm without murmurs, rubs or gallops. S1 and S2 hear d. EXTREMITIES: Normal range of motion, no edema. No clubbing or cyanosis. Peripheral pulses intact and strong. Right radial site mildly bruised. No hematoma. IMPRESSION: NSTEMI Coronary artery disease with occluded LAD, status post arthrectomy and stenting Ischemic cardiomyopathy History of hypothyroidism PLAN: Continue patient's current cardiac medications Patient to follow-up in the office with Dr. Kinsey in one week. Patient is cleared from cardiology for discharge to [facility]. Nurse practitioner note has been reviewed, I agree with documented findings and plan of care. Patient was seen and examined. Objective - Vital Signs Vital signs: Vital Signs Temp 98.5 F 11/24/22 08:00 Pulse 84 11/24/22 08:00 Resp 16 11/24/22 08:00 BP 114/74 11/24/22 08:00 Pulse Ox 95 11/24/22 08:03 FiO2 Intake & Output 11/23/22 11/24/22 11/24/22 18:59 06:59 18:59 Intake Total 570 490 Output Total 625 450 Balance -55 -450 490 Weight 96.5 kg Intake: IV 90 50 Invasive Line 1 20 Invasive Line 2 20 cefTRIAXone 1 gm In 50 50 Sodium Chloride 0.9% 50 ml @ 100 mls/hr IVPB Q24HR [facility] Rx#:[id number] Oral 480 440 Output: Urine 625 450 Other: Voiding Method Indwelling Catheter Indwelling Catheter Indwelling Catheter # Voids 0 # Bowel Movements 0 - Labs CBC & Chem 7: 11/23/22 03:45 11/23/22 03:45
[2022-11-24 13:46] VITALS: BP 106/76; PULSE 77
--- NOTE | 2022-11-24 16:30 | CDI ---
Documentation Clarification Form Date: 11/24/2022 4:05:25 PM From: Michelle Cronin RN, CCDS Email: [email or web address] Admit Date: 11/21/2022 12:50:00 PM Patient Name: Fred Chávez Visit Number: [id number] Discharge Date: ATTENTION: The Clinical Documentation Specialists (CDI) and [facility] Coding Staff appreciate your assistance in clarifying documentation. Please respond to the clarification below the line at the bottom and electronically sign. The CDI & [facility] Coding staff will review the response and follow-up if needed. Please note: Queries are made part of the Legal Health Record. If you have any questions, please contact the author of this message via ITS. Dr. Mackenzie Maxwell Your patient was transferred back to ICU on 11/22 and received IV Lasix. Please clarify what condition/diagnosis was being treated. History/Risk Factors: admitted with chest pain and weakness found to have NSTEMI and underwent cardiac catheterization and found to have ischemic cardiomyopathy with an occluded LAD status post arthrectomy and stenting. Clinical indicators: 11/23 Cardiology: "The patient was transferred to [address] [place] [address] on November 22, however later in the day he developed shortness of breath. Additional dose of IV Lasix was given and the patient was transferred back to the ICU for monitoring. According to nursing documentation he is down 3 kg in the last 24 hours." 11/23 Echo: Left ventricular ejection fraction 15-20% with predominantly apical hypokinesis. 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 11/22 RR high of 47 breaths/minute Treatment: O2 2LNC, IV Lasix 40mg x1 on 11/22. Lasix 40mg po daily. Metoprolol 12.5mg daily What diagnosis were you treating with ICU monitoring and IV Lasix? [ ] Acute systolic CHF [ ] Takotsubo's cardiomyopathy [ ] No additional diagnosis [ ] Other, please specify [ ] Unable to determine Diagnosis is found in scanned Cardiology consult [facility]
== END 2022-11-24 16:22 | DRG 246 ==
LOC: 2SICU 12:50 → 3SCARD 11-23 14:56
PROVIDERS: ADMIT Internal Medicine; ATTEND Internal Medicine
PROC: B240ZZ3 Ultrasonography of Single Coronary Artery, Intravascular (ICD-10-PCS; principal; 2022-11-21 17:30)
PROC: 027035Z Dilation of Coronary Artery, One Artery with Two Drug-eluting Intraluminal Devices, Percutaneous Approach (ICD-10-PCS; principal; 2022-11-21 17:30)
DX: I21.4 Non-ST elevation (NSTEMI) myocardial infarction (principal); I50.21 Acute systolic (congestive) heart failure; R57.0 Cardiogenic shock; N39.0 Urinary tract infection, site not specified; N17.9 Acute kidney failure, unspecified; I25.10 Atherosclerotic heart disease of native coronary artery without angina pectoris; E03.9 Hypothyroidism, unspecified; I25.5 Ischemic cardiomyopathy; K59.09 Other constipation; I44.7 Left bundle-branch block, unspecified; R26.9 Unspecified abnormalities of gait and mobility; N40.0 Benign prostatic hyperplasia without lower urinary tract symptoms; G20 Parkinson's disease; G89.29 Other chronic pain; M25.552 Pain in left hip; N18.30 Chronic kidney disease, stage 3 unspecified; Z79.899 Other long term (current) drug therapy; Z95.0 Presence of cardiac pacemaker; Z28.21 Immunization not carried out because of patient refusal; Z87.442 Personal history of urinary calculi
CPT/HCPCS: 80053; 81001; 85025; 87635; 92978; 93306; 94760